=== PATIENT | female | born 1960 | race Caucasian/White ===

== ENCOUNTER 2021-09-30 10:17 | Outpatient (CLI) | payer OTHER, SELFPAY ==
--- NOTE | ~2021-09-30 | MM_ITS ---
EXAMINATION: MM screening [facility] BI w cheryl HISTORY: Screening mammogram TECHNIQUE: Craniocaudal and mediolateral oblique 3-D tomosynthesis images were obtained and synthetic 2-D images were generated. CAD analysis was submitted and interpreted. COMPARISON: 10/08/2019, 06/14/2018, 05/18/2017 BREAST PARENCHYMAL COMPOSITION: There are scattered areas of fibroglandular density. FINDINGS: There is no evidence of suspicious mass, calcification, or architectural distortion to sugg est malignancy in either breast. There has been no suspicious interval change. IMPRESSION: 1. No mammographic evidence of malignancy. 2. Recommend routine screening mammography in one year. BI-RADS Category 1: Negative Reviewed, dictated and finalized at location A. NESS SERVICES SALES AGENT
== END 2021-09-30 10:18 | disposition home or self-care (01) ==
LOC: ANHIMG 10:20
PROVIDERS: PCP Internal Medicine; Visit Provider Nurse Practitioner
DX: Z12.31 Encounter for screening mammogram for malignant neoplasm of breast (principal)
CPT/HCPCS: 77063; 77067

== ENCOUNTER → 2022-04-14 10:28 | Outpatient (CLI) | payer OTHER, SELFPAY ==
--- NOTE | ~2022-04-14 | XR_ITS ---
XR foot RT min 3V DATE: 04/14/2022 10:58 INDICATION: Right foot pain TECHNIQUE: 4 views COMPARISON: None FINDINGS: There is osteopenia. No fracture or dislocation, periosteal reaction or bone destruction. There is mild osteoarthritis at the first metatarsophalangeal joint. IMPRESSION: Osteopenia Mild osteoarthritis at first metatarsophalangeal joint Reviewed, dictated and finalized at location B.
== END ==
PROVIDERS: PCP Internal Medicine; Visit Provider Internal Medicine
DX: M79.671 Pain in right foot (principal); M85.871 Other specified disorders of bone density and structure, right ankle and foot; M19.071 Primary osteoarthritis, right ankle and foot
CPT/HCPCS: 73630

== ENCOUNTER 2022-07-31 15:44 | Emergency (ER) | payer OTHER, SELFPAY ==
--- NOTE | ~2022-07-31 | XR_ITS ---
EXAMINATION: XR sternum min 2V INDICATION: Sternal pain after fall TECHNIQUE: Two views of the sternum are obtained. COMPARISON: 08/09/2016 FINDINGS: There is minimal cortical irregularity of the manubrium of the sternum which could reflect nondisplaced fracture. The sternum otherwise appears unremarkable. Calcified subcarinal lymph nodes a re consistent with old granulomatous disease. IMPRESSION: 1. Minimal cortical irregularity of the manubrium of the sternum which could reflect nondisplaced fra cture. Correlate for tenderness at this site. Reviewed, dictated and finalized at location B. ND MANAGER IMPRESSION: 1. Minimal cortical irregularity of the manubrium of the sternum which could re flect nondisplaced fracture. Correlate for tenderness at this site.
--- NOTE | ~2022-07-31 | XR_ITS ---
EXAMINATION: XR chest 2V DATE: 07/31/2022 16:42 INDICATION: Chest pain after fall TECHNIQUE: Frontal and lateral views of the chest are obtained COMPARISON: 08/09/2016 FINDINGS: The lungs are free of acute opacities. No pleural effusion or pneumothorax. The cardiomedia stinal silhouette is normal. There is mild thoracic spondylosis. Calcified pulmonary nodules and calc ified subcarinal lymph nodes are consistent with old granulomatous disease. IMPRESSION: 1. No acute cardiopulmonary abnormality. Reviewed, dictated and finalized at location B. LAR SENIOR CARE PROVIDER
[2022-07-31 16:00] VITALS: BP 148/76; PULSE 78; RESP 18; TEMP 36.9; O2SAT 100
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
== END 2022-07-31 17:35 | disposition home or self-care (01) ==
PROVIDERS: Emergency Provider Nurse Practitioner; PCP Internal Medicine
DX: S20.212A Contusion of left front wall of thorax, initial encounter (principal); V18.4XXA Pedal cycle driver injured in noncollision transport accident in traffic accident, initial encounter
CPT/HCPCS: 71046; 71120; 99213; G0463

== ENCOUNTER 2022-12-01 09:16 | Outpatient (CLI) | payer OTHER, SELFPAY ==
--- NOTE | ~2022-12-01 | MM_ITS ---
EXAMINATION: MM screening [facility] BI w cheryl HISTORY: Screening mammogram TECHNIQUE: Craniocaudal and mediolateral oblique 3-D tomosynthesis images were obtained and synthetic 2-D images were generated. CAD analysis was submitted and interpreted. COMPARISON: 09/30/2021, 10/06/2019, 06/14/2018 bilateral screening mammogram examinations BREAST PARENCHYMAL COMPOSITION: There are scattered areas of fibroglandular density. FINDINGS: There is no evidence of suspicious mass, calcification, or architectural distortion to sugg est malignancy in either breast. There has been no suspicious interval change. IMPRESSION: 1. No mammographic evidence of malignancy. 2. Recommend routine screening mammography in one year. BI-RADS Category 1: Negative Reviewed, dictated and finalized at location B. CULTURE AND FISHERIES PROFESSOR
== END 2022-12-01 09:17 | disposition home or self-care (01) ==
LOC: ANHIMG 09:18
PROVIDERS: PCP Internal Medicine; Visit Provider Internal Medicine
DX: Z12.31 Encounter for screening mammogram for malignant neoplasm of breast (principal)
CPT/HCPCS: 77063; 77067

== ENCOUNTER 2023-12-29 11:02 | Outpatient (CLI) | payer BC, SELFPAY ==
--- NOTE | ~2023-12-29 | MM_ITS ---
EXAMINATION: MM screening [facility] BI w cheryl HISTORY: Screening mammogram TECHNIQUE: Craniocaudal and mediolateral oblique 3-D tomosynthesis images were obtained and synthetic 2-D images were generated. CAD analysis was submitted and interpreted. COMPARISON: 12/01/2022, 09/30/2021 bilateral screening mammogram examinations BREAST PARENCHYMAL COMPOSITION: There are scattered areas of fibroglandular density. FINDINGS: There is no evidence of suspicious mass, calcification, or architectural distortion to sugg est malignancy in either breast. There has been no suspicious interval change. IMPRESSION: 1. No mammographic evidence of malignancy. 2. Recommend routine screening mammography in one year. BI-RADS Category 1: Negative Reviewed, dictated and finalized at location B.
== END 2023-12-29 11:03 | disposition home or self-care (01) ==
PROVIDERS: PCP Nurse Practitioner; Visit Provider Nurse Practitioner
DX: Z12.31 Encounter for screening mammogram for malignant neoplasm of breast (principal)
CPT/HCPCS: 77063; 77067

== ENCOUNTER → 2025-01-14 13:37 | Outpatient (CLI) | payer BC, SELFPAY ==
--- NOTE | ~2025-01-14 | XR_ITS ---
XR knee LT min 4V 01/14/2025 13:50 Indication: Left knee pain Procedure: 4 views left knee Comparison: No prior studies for comparison. Findings: There is mild tricompartment osteoarthritis. No fracture, subluxation or dislocation. No christine int effusion. No foreign bodies. Impression: 1: Mild tricompartment osteoarthritis of the left knee. Reviewed, dictated and finalized at location A. Impression: 1: Mild tricompartment osteoarthritis of the left knee.
== END ==
PROVIDERS: PCP Family Medicine; Visit Provider Family Medicine
DX: M17.12 Unilateral primary osteoarthritis, left knee (principal)
CPT/HCPCS: 73564

== ENCOUNTER 2025-04-03 09:53 | Outpatient (CLI) | payer BC, SELFPAY ==
--- NOTE | ~2025-04-03 | MM_ITS ---
EXAMINATION: MM screening magalie BI w cheryl HISTORY: Screening mammogram TECHNIQUE: Craniocaudal and mediolateral oblique 3-D tomosynthesis images were obtained and synthetic 2-D images were generated. CAD analysis was submitted and interpreted. COMPARISON: 12/29/2023, 12/01/2022 BREAST PARENCHYMAL COMPOSITION:Dense: The breasts are heterogeneously dense, which may obscure small masses. FINDINGS: No suspicious mass, calcification, or architectural distortion are identified in either yaneth ast to suggest malignancy. There has been no suspicious interval change. IMPRESSION: No mammographic evidence of malignancy. Recommend routine screening mammography in one year. BI-RADS Category 1: Negative Reviewed, dictated and finalized at location .
--- OUTSIDE RECORDS SUMMARY | 2025-04-03 09:59 | XMS_ITS | Continuity of Care Document ---
Author Organization [facility] Address [address] [place] [address] [place] [address] Phone Care Team Providers Care Miller Distillery Name Role Phone [facility] Unavailable Unavail able Ayah Crhistie Unavailable Unavailable Advance Directives Directive Yes / No Effective Date File Name No Information Encounters Encounter Description Practice Location Reason(s) For Visit Diagnoses Date Provider Providers Copied on Encounter [facility], [address], [place], [place], [id number], [place] tel:[phone] [facility] No Information Nov- 1-200 2 [facility] [address], [address], [place], [place], [id number] , [place]. tel:[phone] Consulting Provider: Ayah Christie, [address] [place] [address], [place], [address]. tel:[phone] Family History Family Member Type Diagnosis Age At Onset No Information Payers Payer name Insurance type Covered constitution party ID Authoriza tion(s) No Information Social History Type Description Quantity Date Captured Comments Sex Female Smoking Status No Information Chief Complaint And Reason For Visit No Information Reason For Referral Reason For Referral No Information History Of Present Illness Encounter Date Complaint History Of Prese nt Illness No Information Functional Status Date Functional Assessmen t No Information Instructions Date Instruction Additional Infor mation No Information Assessments Type Assessment Date No Information Patient Care Teams Name Effective Dates (start - stop) Status Members No Information
--- OUTSIDE RECORDS SUMMARY | 2025-04-03 09:59 | XMS_ITS | Clinical Summary ---
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 Gender Identity Not on file Sexual Orientation Not on file Plan of Treatment Health Maintenance Due Date Last Done Comments DTAP/TDAP/TD VACCINES (1 - Tdap) 1978 FIT-DNA Q 3 years 2004 FIT/FOBT Q 1 year 2004 Flex Sig/CT Colonography Q 5 years 2004 PNEUMOCOCCAL VACCINE 50+ YEA RS (1 of 1 - PCV) 2009 ZOSTER VACCINE (1 of 2) 2009 BREAST CANCER SCREENING 02/15/2019 02/15/2018, 02/15 OSTEOPOROSIS SCREENING 2024 INFLUENZA VACCINE (#1) 2025 COLORECTAL SCREENING 05/30/2028 05/30/2018, 05/30/20 18 Colorectal Cancer Screening 05/30/2028 RSV VACCINE (60+ or ) (1 - 1-dose 75+ series) 2034 Procedures Procedure Name Priority Date/Time Associated Diagnosis Comments ENDOSCOPY, COLON, SCREENING Routine 05/30/2018 from Last 3 Months or Most Recently Relevant to Health Maintenance Results * ENDOSCOPY, COLON, SCREENING (05/30/2018) us Shashank Keric MD GI PROCEDURE ORDERABLES Edited R esult - Final [facility] - [facility] CLIA# [id number] [address] [facility] [facility] [address] [place] [address] from Last 3 Months or Most Recently Relevant to Health Maintenance Care Teams Electric Motor Repairman Relationship Specialty Start Date End Date Paul Valentin MD PCP - General Internal Medicine 05/21/12
--- OUTSIDE RECORDS SUMMARY | 2025-04-03 09:59 | XMS_ITS | Encounter Summary ---
Author Organization [facility] Address [address] [place] [address] Care Team Providers Care Sand Slinger Operator Name Role Phone Heidi Monsivais NP Primary Care Provider [phone] Encounter Details Date Type Department Care Team (Late st Contact Info) Description 03/03/2024 [facility] [address] [facility] [address] [place] [id number] [address], [facility] Provider Annual physicla Social History Tobacco Use Types Packs/Day Years Used Date Smoking Tobacco: Former Cigarettes 1 10 0 11/08/1991 - 11/08/2001 Passive Smoke Exposure: Never Smokeless Tobacco: Never Comments:Quit so long ago, c an't remember the year Alcohol Use Standard Drinks/Week Comments Yes 6.7 (1 standard drin k = 0.6 oz pure alcohol) maybe has 3 or 4 glasses of wine per week PHQ-2 Answer Date Recorded Patient Health Questionnaire-2 Score 0 01/11/2023 Comments No Sex and Gender Information Value Date Recorded Sex Assigned at Female 01/15/2023 7:58 AM CDT Legal Sex Female 11:50 AM CDT Gender Identity Female 01/15/2023 7:58 AM CDT Sexual Orientation Straight 01/15/2023 7: 58 AM CDT documented as of this encounter Plan of Treatment Not on file documented as of this encounter Visit Diagnoses Not on filedocumented in this encounter Care Teams Sand Slinger Operator Relationship Specialty Start Date End Date Heidi Monsivais NP [address] [place] [address] PCP - General NURSE PRACTITIONER 12/29/22 07/24/24 documented as of this encounter
--- OUTSIDE RECORDS SUMMARY | 2025-04-03 09:59 | XMS_ITS | Clinical Summary ---
Author Organization [facility] Address [address] [place] [address] Care Team Providers Care Librarian Head Name Role Phone Unavailable Primary Care Provider Unavailabl e Allergies No known active allergies Medications Vitamin D, Ergocalciferol, 00763 units Cap Take 125 mcg by mouth daily. Active lisinopril (PRINIVIL) 40 MG tablet Take 1 tablet (40 mg total) by mouth 2 (two) times a day. 3 Active nitrofurantoin (MACRODANTIN) 50 MG capsule Take 1 capsule (50 mg total) by mouth as needed. 3 Active atorvastatin (LIPITOR) 40 MG tabletIndications:H yperlipidemia, unspecified hyperlipidemia type take 1 tablet by mouth nightly at bedtime 90 tablet 4 Active Active Problems Problem Noted Date Diagnosed Date At risk for obstructive sleep apnea 01/11/2023 Overweight (BMI 25.0-29.9) 01/11/2023 Essential (primary) hypertension 05/05/2018 Hypo-osmolality and hyponatremia 05/05/2018 Other hyperlipidemia 05/05/2018 Overview (01/11/2023): Converted unresolved ICD9, potential mismatch. Immunizations Immunization Administration Dates Next Due Influenza (Generic) 06/03/2023, 2,07/25/2013,2011 Influenza Adult (Generic) 07/28/2024,07/10/2021 PFIZER COVID-19 (ORIGINAL FORMULATION, PURPLE CAP) mRNA, LNP-S, PF, 30 MCG/0.3 ML DOSE 07/30/2021 Shingrix 10/23/2021,07/10/2021 Tdap (Generic) 09/23/2018 Family History Medical History Relation Comments Heart Disease Mother Relation Status Comments Mother Social History Tobacco Use Types Packs/Day Years Used Date Smoking Tobacco: Former Cigarettes 1 10 0 11/08/1991 - 11/08/2001 Passive Smoke Exposure: Never Smokeless Tobacco: Never Tobacco Cessation:Counseling Given: Not Answered Comments:Quit so long ago, can't remember the year Alcohol Use Standard Drinks/Week [...] Orientation Straight 01/15/2023 7: 58 AM CDT Last Filed Vital Signs Vital Sign Reading Time Taken Comments Blood Pressure 124/64 05/18/2023 11:55 AM CDT Pulse 75 05/18/2023 11:55 AM CDT Temperature 37.2 C (98.9 F) 04/27/2023 10:03 AM CDT Respiratory Rate 18 04/27/2023 10:0 3 AM CDT Oxygen Saturation 98% 05/18/2023 11: 55 AM CDT Inhaled Oxygen Concentration - - Weight 74.3 kg (163 lb 11.2 oz) 023 11:55 AM CDT Height 165.1 cm (5' 5) 05/18/2023 11:5 5 AM CDT Body Mass Index 27.24 05/18/2023 11:55 AM CDT Plan of Treatment Health Maintenance Due Date Last Done Comments Colorectal Cancer Screening Colonoscopy (10 Years) 1959 Pneumococcal Vaccine: 50+ Years (1 of 1 - PCV) 2009 COVID-19 Vaccine (2023-2 5 season) 2024 07/30/2021, 11/27/2020 PHQ-2 (Physician [place]) 09/24/2024 Dexa Scan (General) 2024 Mammogram Screening 12/01/2024 12/01/2022 DTaP, Tdap and Td Vaccines ( 2 - Td or Tdap) 09/23/2028 09/23/2018 RSV Immunization or 60+ Years (1 - 1-dose 75+ series) 2034 Zoster Vaccines Completed 10/23/2021, 07/10/2021 Hepatitis C Completed 02/22/2023 Meningococcal B Vaccine Aged Out No l onger eligible based on patient's age to complete this topic Meningococcal Vaccine Aged Out No oliver nayan eligible based on patient's age to complete this topic RSV Immunizations Under 20 Months Aged Out No longer eligible b ased on patient's age to complete this topic Procedures Procedure Name Priority Date/Time Associated Diagnosis Comments HEPATITIS C ANTIBODY W/RFX TO HCV RNA Routine 02/22/2023 9:10 AM CDT Need for hepatitis C screening test MAMMOGRAM GENERIC (SCAN ORDER) 12/01/2022 from Last 3 Months or Most Recently Relevant to Health Maintenance Results * HEPATITIS C ANTIBODY W/RFX TO HCV RNA (02/22/2023 9:10 AM CDT) HEPATITIS C AB Non Reactive Non Reacti [facility] 1 INTERPRETATION Comment [facility] 1 Comment: Not infected with HCV unless early or acute infection is suspected (which may be delayed in an immunocompromised individual), or other evidence exists to indicate HCV infection. 02/22/2023 9:10 AM CDT 02/22/2023 Narrative [facility] - 02/23/2023 7:07 AM CDT Performed at: - [facility] [id number] Pocket Flap Creasing Machine Operator: Kev Arthur PhD, Phone: [phone] us Heidisylvain Monsivais NP LABORATORY Final Res ult [facility] [address] [place] [address] [facility] 1 * MAMMOGRAM GENERIC (12/01/2022) Anatomical Region Laterality Modality Other 12/01/2022 us Doc [facility] Scanned SCANNING Final Resu lt from Last 3 Months or Most Recently Relevant to Health Maintenance Insurance [facility]
--- OUTSIDE RECORDS SUMMARY | 2025-04-03 09:59 | XMS_ITS | Clinical Summary ---
Author Organization [facility] Address [address] [place] [id number] Phone Care Team Providers Care [facility] Food Service Worker Name Role Phone Unavailable Primary Care Provider Unavailabl e Medications niacin 500 MG tablet 1 tab/cap qday 0 05/05/2018 Active indapamide (LOZOL) 1.25 MG tablet 1 tab/cap qday 0 05/05/2018 Active lisinopril (PRINIVIL,ZESTR IL) 40 MG tablet 1 tab/cap bid 0 05/05/2018 Activ e pravastatin (PRAVACHOL) 40 MG tablet 1 tab/cap qday 0 05/05/2018 Active folic acid (FOLVITE) 800 MCG tablet 1 tab/cap qday 0 05/05/2018 Active carvedilol (COREG) 6.25 MG tablet 1 tab/cap bid 0 05/05/2018 Activ e co-enzyme Q-10 30 MG capsule 1 tab/cap qday 0 05/05/2018 Active cholecalciferol (VITAMIN D-3) 1000 units tablet as directed 0 05/05/2018 Active albuterol HFA (VENTOLIN HFA) 108 (90 Base) MCG/ACT inhaler as directed 0 05/05/2018 A ctive Active Problems Problem Noted Date Diagnosed Date Hypo-osmolality and hyponatremia 05/05/2018 Essential (primary) hypertension 05/05/2018 Gastro-esophageal reflux disease without esophag itis 05/05/2018 Other hyperlipidemia 05/05/2018 Overview (12/07/2018): Converted unresolved ICD9, potential mismatch. Family History Medical History Relation Comments Malignant neoplastic disease Father Cerebrovascular accident Mother Hypertensive disorder Mother Kidney disease Neg Hx Kidney stone Neg Hx Relation Status Comments Father Mother Social History Tobacco Use Types Packs/Day Years Used Date Smoking Tobacco: Never Alcohol Use Standard Drinks/Week Comments Yes 0 (1 standard drink = 0.6 oz pur e alcohol) Comments Unknown Sex and Gender Information Value Date Recorded Sex Assigned at Not on file Legal Sex Female 9:02 AM MST Gender Identity Not on file Sexual Orientation Not on file Last Filed Vital Signs Vital Sign Reading Time Taken Comments Blood Pressure 120/70 05/06/2018 12:01 AM CDT Pulse - - Temperature 36.4 C (97.6 F) 05/06/2018 12:01 AM CDT Respiratory Rate - - Oxygen Saturation - - Inhaled Oxygen Concentration - - Weight 75.8 kg (167 lb) 05/06/2018 12:01 AM CDT Height 162.6 cm (5' 4) 05/06/2018 12:01 AM CDT Body Mass Index 28.67 05/06/2018 12:01 AM CDT Plan of Treatment Health Maintenance Due Date Last Done Comments Pneumococcal PPSV23/PCV13 65 + Years / Low and Medium Risk (1 of 2 - PCV) 2009 Influenza Vaccine (#1) 2025
--- OUTSIDE RECORDS SUMMARY | 2025-04-03 09:59 | XMS_ITS | Encounter Summary ---
Author Organization [facility] Address [address] [place] [address] Care Team Providers Care Sap Business Intelligence Consultant Name Role Phone Heidi Monsivais STEEL MOLDER Primary Care Provider [phone] Encounter Details Date Type Department Care Team (Late st Contact Info) Description 01/28/2024 bttn Message [facility] Family Medicine [facility] [address] [facility] [address] [place] [phone] [address] [facility] Provider Annual Social History Tobacco Use Types Packs/Day Years [...] on filedocumented in this encounter Care Teams Sap Business Intelligence Consultant Relationship Specialty Start Date End Date Heidi Monsivais NP [address] [place] [address] PCP - General NURSE PRACTITIONER 12/29/22 07/24/24 documented as of this encounter
== END 2025-04-03 09:54 | disposition home or self-care (01) ==
LOC: ANHIMG 09:56
PROVIDERS: PCP Family Medicine; Visit Provider Family Medicine
DX: Z12.31 Encounter for screening mammogram for malignant neoplasm of breast (principal)
CPT/HCPCS: 77063; 77067